=== PATIENT | male | born 1980 | race Caucasian/White ===

== ENCOUNTER 2019-11-10 00:17 | Emergency (ER) | payer SELFPAY ==
[~2019-11-10] VITALS: Ht 170.2 cm; Wt 79.0 kg
[2019-11-10 11:05] VITALS: BP 116/71
== END 2019-11-10 11:05 | disposition home or self-care (01) ==
LOC: ER 00:29
DX: M25.572 Pain in left ankle and joints of left foot (principal); M79.672 Pain in left foot; Z59.0 Homelessness
CPT/HCPCS: 73610; 73630; 99283